=== PATIENT | female | born 1995 ===

== ENCOUNTER 2017-09-13 07:48 | Day surgery (SDC) | payer SELFPAY ==
[~2017-09-13] VITALS: Ht 162.6 cm; Wt 98.9 kg
[2017-09-13] VITALS (12 sets, daily range): BP systolic 111–127; BP diastolic 64–80
[~2017-09-13 07:48] MED LIST: GLIPIZIDE5 MG ORAL; METFORMIN HCL500 M1 ORAL; NOVOLIN R100 UNIT/1 SUBQ
[2017-09-13] MEDS ORDERED: Proparacaine 0.5% Opth Soln 15ml LEFT EYE SCH (08:30)
[2017-09-13] MEDS: Tropicamide 1% Opth 15ml Soln LEFT EYE SCH ×3 (08:44→09:11)
[2017-09-13] MEDS: Phenylephrine 2.5% Op 2ml Soln LEFT EYE SCH ×3 (08:44→09:11)
[2017-09-13] MEDS: Cyclopentolate 1% Opth Sol 2ml LEFT EYE SCH ×3 (08:44→09:11)
[2017-09-13] MEDS ORDERED: Pred Forte 1% Opth Susp 1ml ONE (09:06)
[2017-09-13] MEDS ORDERED: Lidocaine 2% MPF 5ml Vial INJ ONE (09:06)
[2017-09-13] MEDS ORDERED: Maxitrol Opth Oint 3.5gm ONE (09:06)
[2017-09-13] MEDS ORDERED: Kenalog-40 1ml Vial ONE (09:06)
[2017-09-13] MEDS ORDERED: BSS 500ml btl ONE (09:07)
[2017-09-13] MEDS ORDERED: Tetracaine 0.5% Opth 4ml Soln ONE (09:07)
[2017-09-13] MEDS ORDERED: BSS 15ml BTL ONE (09:07)
[2017-09-13] MEDS ORDERED: Povidone-Iodine 5% opth solution ONE (09:07)
[2017-09-13] MEDS ORDERED: Dexamethasone 4mg/ml vial ONE (09:07)
[2017-09-13] MEDS ORDERED: Bupivacaine 0.75% 30ml vial INJ ONE (09:08)
[2017-09-13] MEDS ORDERED: Goniosol 2.5% Opth Soln - 15ml ONE (09:08)
[2017-09-13] MEDS ORDERED: Acetylcholine Injection (OR) ONE (09:24)
[2017-09-13] MEDS ORDERED: EPINEPHrine 1mg/1ml Amp ONE (09:24)
[2017-09-13] MEDS ORDERED: Sodium Hyaluronate 10 mg/ml 0.85ml ONE (09:25)
--- NOTE | 2017-09-13 09:57 | Pre-Procedure Note/Attestation ---
Pre-Procedure Note/Attestation Complete Prior to Procedure Planned Procedure: left Procedure Narrative: PDR/TRD OS Indications for Procedure Pre-Operative Diagnosis: PDR/TRD OS Attestation I attest that I discussed the nature of the procedure; its benefits; risks and complications; and alternatives (and the risks and benefits of such alternatives ), prior to the procedure, with the patient (or the patient's legal outbound call center representative). I attest that, if there was a reasonable possibility of needing a blood transfusion, the patient (or the patient's legal outbound call center representative) was given the [facility] standardized written summary, pursuant to the Juan Rainelle Blood Safety Act ([place] Health and Safety Code # 1645, as amended). I attest that I re-evaluated the patient just prior to the surgery and that there has been no change in the patient's H&P, except as documented below: Jaylon Chauhan M.D., MD September 13, 2017 09:57
--- NOTE | 2017-09-13 10:00 | Anethesia Preoperative Eval ---
Anesthesia Pre-op PMH/ROS General Date of Evaluation: September 13, 2017 Time of Evaluation: 09:58 Anesthesiologist: alvin ASA Score: ASA 2 Mallampati Score Class I : Soft palate, uvula, fauces, pillars visible Class II: Soft palate, uvula, fauces visible Class III: Soft palate, base of uvula visible Class IV: Only hard plate visible Mallampati Classification: Class II Surgeon: Tien Diagnosis: DM Prolierative Retinopathy Surgical Procedure: Vitectomy Anesthesia History: none, PONV Family History: no anesthesia problems Allergies: Coded Allergies: No Known Allergies (Unverified , 09/13/17) Anesthesia Pre-op Phys. Exam Physician Exam Last Vital Signs Date Time Temp Pulse Resp B/P (MAP) Pulse Ox O2 Delivery O2 Flow Rate FiO2 09/13/17 08:26 98.2 83 20 120/65 99 Room Air 98.2 Constitutional: NAD Neurologic: CN 2-12 intact Cardiovascular: RRR Respiratory: CTA Gastrointestinal: S/NT/ND Airway Exam Mallampati Score: Class II MO: full ROM: full Teeth: intact Anesthesia Pre-op A/P Labs Urine Test Test 09/13/17 06:05 Urine HCG, Qualitative Negative (NEGATIVE) Risk Assessment & Plan Plan: GA Status Change Before Surgery: No Pre-Antibiotics Given Within 1 Hr of Incision: Matthew Ortiz M.D. September 13, 2017 10:00
--- NOTE | 2017-09-13 15:50 | Operative Note - PDOC ---
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 He presents today for surgery after review of the risks, benefits, alternative and signing informed consent into the medical chart. Description of Procedure Procedure performed: The patient was met in the pre-operative area where informed consent was reviewed. The operative eye was verified, marked and dilated. The patient was transferred to the operative suite, where cardiopulmonary monitoring was established and general anesthetic was administered without complications. The eye was prepped and draped in sterile ophthalmic fashion. Under microscope visualization the 23 gauge infusion line was placed 4 millimeters inferotemporally. After visualization of the tip in the vitreous cavity, the infusion line was turned on. The superotemporal and superonasal cannulas were placed. Under ReSight visualization, peripheral and core vitrectomy was performed. As the dense vitreous hemorrhage was cleared, the posterior pole was visualized. There was a significant degree of macular gliosis and tractional detachment of the temporal macula.and the superior mid-periphery At this point, dissection of the membranes was performed under high magnification of the temporal macula. As the membranes were removed and the connections were trimmed, the retinal traction released temporally. The the superior area of TRD was trimmed and relaxed. Further peripheral vitrectomy was performed and the thick/dense hemorrhage was meticulously removed from the mid-peripheral retina. The AP traction was further release and peripheral areas of un-treated retina were revealed. Endolaser was applied to complete the limited pre-existing PRP. Inspection of the periphery revealed no iatrogenic breaks. Air fluid exchange was performed. Gas was infused in to the eye - SF6 (20%). The cannulas were removed and the sclerotomies were sutured. The eye maintained normal intraocular pressure. Subconjunctival vancomycin and dexamethasone were administered. The lid speculum was removed. The eye was cleaned of prep and drape. Atropine drop and Maxitrol ointment was applied. A pressure patch was placed. The patient was turned over to the anesthesia team and transferred in stable condition to the PACU. Jaylon Chauhan M.D., MD September 13, 2017 15:50
--- NOTE | 2017-09-13 15:52 | Brief Operative Note ---
Immediate Post Operative Note Operative Note Pre-op Diagnosis: PDR/VH/TRD OS Procedure: PPV/MP/EL/AFE/SF6 (20%) OS Post-op Diagnosis: same as pre-op Anesthesia: general Specimen: none Complications: none Condition: stable Fluids: Min Estimated Blood Loss: none Drains: none Implant(s) used?: No Jaylon Chauhan M.D., MD September 13, 2017 15:51
== END 2017-09-13 14:00 | disposition home or self-care (01) ==
LOC: SUR 07:48
DX: E11.3522 Type 2 diabetes mellitus with proliferative diabetic retinopathy with traction retinal detachment involving the macula, left eye (principal); H43.12 Vitreous hemorrhage, left eye; E11.3513 Type 2 diabetes mellitus with proliferative diabetic retinopathy with macular edema, bilateral
CPT/HCPCS: 67108; 81025; 82962; J0171; J1100; J2405; J3301; J3370; J3490